=== PATIENT | male | born 1985 | race Two or more races ===

== ENCOUNTER 2018-06-06 18:40 | Emergency (ER) | payer MEDICAID ==
[~2018-06-06] VITALS: Ht 167.6 cm; Wt 75.0 kg
[2018-06-06] MEDS ORDERED: BACITRACIN ZINC OINT UDPKT TOP ONE (22:45)
[2018-06-06] MEDS ORDERED: ACETAMINOPHEN WITH CODEINE 300/30MG TABLET PO ONE (22:45)
[2018-06-06 23:06] VITALS: BP 140/84
== END 2018-06-06 23:07 | disposition home or self-care (01) ==
LOC: ER 18:40
DX: L03.012 Cellulitis of left finger (principal); R03.0 Elevated blood-pressure reading, without diagnosis of hypertension
CPT/HCPCS: 99283